=== PATIENT | male | born 1975 | race Caucasian/White ===

== ENCOUNTER 2019-01-14 14:48 | Emergency (ER) | payer OTHER ==
[~2019-01-14] VITALS: Ht 162.6 cm; Wt 67.6 kg
[2019-01-14 15:08] VITALS: BP 117/81; Ht 162.6 cm; Wt 67.6 kg
== END 2019-01-14 15:34 | disposition home or self-care (01) ==
LOC: ED 14:48
DX: T63.481A Toxic effect of venom of other arthropod, accidental (unintentional), initial encounter (principal); Y92.89 Other specified places as the place of occurrence of the external cause